=== PATIENT | male | born 1990 | race Caucasian/White ===

== ENCOUNTER 2021-09-26 09:05 | Outpatient (REF) | payer OTHER, SELFPAY ==
--- NOTE | ~2021-09-26 | MR_ITS ---
EXAMINATION: MR BRAIN WITHOUT AND WITH CONTRAST CLINICAL INFORMATION: 31-year-old with intractable headaches of unspecified chronicity, pattern and type. COMPARISON: None TECHNIQUE: Multiplanar, multisequence MRI of the brain was obtained before and after the intravenous administration of 8.5 mL Gadavist. FINDINGS: BRAIN VOLUME: Within normal limits. STRUCTURAL: 2 mm benign pineal cyst. BRAIN AND MENINGES: DWI sequence demonstrates no restricted diffusion. Specifically, there is no evidence for acute or subacute cerebral ischemia. Gradient refocused imaging demonstrates no evidence for hemorrhage, hemosiderin staining or abnormal mineral deposition. The brain parenchyma is normal in signal intensity on the T1, T2 and FLAIR images. Following contrast administration, there is a faint, subtle 3 mm focus of the enhancement corresponding to the head of the left caudate nucleus which is a nonspecific finding. Otherwise no foci of abnormal enhancement are seen throughout the remainder of the brain and there is no significant mass effect or extra-axial fluid collection. Luke-white matter interface is preserved. VENTRICLES AND SUBARACHNOID SPACES: The ventricular system and subarachnoid spaces appear within normal limits without hydrocephalus. ORBITAL STRUCTURES: The visualized orbital structures are grossly unremarkable within the limitations of the study. VASCULAR: Signal voids are noted in the visualized major intracranial vessels. OSSEOUS STRUCTURES, SINUSES/MASTOIDS, EXTRACRANIAL SOFT TISSUES: Osseous marrow signal intensity appears homogeneous. Small retention cysts noted in the maxillary sinuses bilaterally with minor mucosal thickening in the ethmoid complex. Visualized extracranial soft tissue structures appear grossly within normal limits. MR/MR head/brain wo/w con IMPRESSION: 1. A 3 mm faint zone of subtle enhancement suspected in the head of the left caudate nucleus of indeterminate significance. A follow up MRI of the brain without and with contrast is recommended to include 3-D, thin-section gradient echo T1-weighted images post contrast in 3-6 months to reassess this. There is no associated T2 abnormality or mass effect. 2. Otherwise normal MRI of the brain without and with contrast. 3. Paranasal sinus mucosal inflammatory changes.
== END 2021-09-26 09:06 | disposition home or self-care (01) ==
LOC: HO.MRI 09:05
PROVIDERS: Visit Provider Psychiatry & Neurology Neurology
DX: R51.9 Headache, unspecified (principal)
CPT/HCPCS: 70553; A9585

== ENCOUNTER 2023-01-17 16:03 | Outpatient (REF) | payer OTHER, SELFPAY ==
--- NOTE | ~2023-01-17 | MR_ITS ---
EXAMINATION: MR BRAIN WITHOUT AND WITH CONTRAST CLINICAL INFORMATION: Brain lesion. COMPARISON: Brain MRI from 09/26/2021. TECHNIQUE: MRI of the brain was obtained using routine sequences without and following the administration of 8 mL of Gadavist intravenous contrast. FINDINGS: No focal restricted diffusion is demonstrated to suggest acute or subacute cerebral ischemia. No evidence of acute or chronic hemorrhagic products on heme-sensitive imaging. Stable faint 0.3 cm focus of enhancement without associated mass effect in the left caudate head. No additional parenchymal signal abnormalities. The ventricles are normal in morphology and size. No abnormal mass effect. No midline shift. Normal appearance of the pituitary gland. Normal positioning of the cerebellar tonsils. Normal arterial and venous vascular flow voids are present. No abnormal contrast enhancement. Normal, homogeneous marrow signal. Mild mucosal thickening of the paranasal sinuses. No signal abnormalities within the mastoids. MR/MR head/brain wo/w con IMPRESSION: 1. No acute intracranial abnormalities. 2. Stable faint 0.3 cm focus of enhancement in the left caudate head. This appearance is nonspecific but may represent a tiny vascular structure. If future follow-up imaging is obtained, this should include high-resolution volumetric postcontrast imaging for better characterization. 3. No additional abnormal intracranial enhancement.
[2023-01-17] MEDS: gadobutroL 10 ML VIAL 8 ML IVPUSH (16:53)
== END 2023-01-17 16:04 | disposition home or self-care (01) ==
LOC: HO.MRI 16:03
PROVIDERS: Visit Provider Psychiatry & Neurology Neurology
DX: G93.9 Disorder of brain, unspecified (principal)
CPT/HCPCS: 70553; A9585